=== PATIENT | male | born 1985 | race Caucasian/White ===

== ENCOUNTER 2017-01-24 07:26 | Emergency (ER) | payer BC ==
--- NOTE | 2017-01-24 07:41 | EDPHY ---
H & P Time Seen by Provider: 01/24/17 07:33 HPI/ROS: Chief complaint. Vomiting and diarrhea HPI. 31-year-old male here with nausea vomiting diarrhea and some abdominal cramping that started last night. He ate a raw egg is part of a meal at lunch yesterday. He also drink a fair amount of milk last evening. He does not think he is lactose intolerant. Still slightly nauseated though the diarrhea has decreased as well as the abdominal cramping. He feels somewhat lightheaded on standing. He has some burning with urination. No fever. No chest discomfort or trouble breathing. ROS Constitutional. no fever/chills, no weakness Eyes. no problems with vision ENT. no sore throat, no nasal drainage Cardiovascular. no chest pain Respiratory. no shortness of breath, no cough Abdominal. Abdominal cramping with nausea vomiting and diarrhea . no problems urinating MS. no calf pain/swelling, no neck/back pain, no joint pain Skin. no rash Lymph. no swollen glands Neuro. no headache, no dizziness, no difficulty walking or with speech Past Medical/Surgical History: Anxiety, panic attacks Social History: Single, nonsmoker, no alcohol. 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 ENT, mucous membranes slightly dry Respiratory: There are no retractions, lungs are clear to auscultation. Cardiovascular: Regular rate and rhythm. Gastrointestinal: Abdomen is soft and nontender, no masses, bowel sounds normal. No pain to palpation Neurological: Awake and alert, sensory and motor exams grossly normal. Skin: Warm and dry, no rashes. Musculoskeletal: Neck is supple nontender. Extremities symmetrical, full range of motion. Psychiatric: Patient is oriented X 3, there is no agitation. Constitutional: Initial Vital Signs Temperature (C) 36.6 C 01/24/17 07:28 Heart Rate 99 01/24/17 07:28 Respiratory Rate 18 01/24/17 07:28 Blood Pressure 105/63 01/24/17 07:28 O2 Delivery Mode Room Air Allergies/Adverse Reactions: No Known Allergies Allergy (Verified 01/24/17 07:27) Home Medications: Medication Instructions Recorded NO HOME MEDS 05/28/10 Ondansetron Odt [Zofran Odt] 4 mg PO Q4PRN PRN #4 tab 01/24/17 Medical Decision Making Procedures: Zofran ODT ED Course/Re-evaluation: Re-evaluation at 9:30 a.m.. Patient is unable to give stool sample. He looks well and has minimal symptoms at this point. The patient and I discussed laboratory evaluation, treatment plan including criteria for return importance of follow-up further evaluation. He expresses understanding and agreement Differential Diagnosis: This certainly could be Salmonella infection as the patient has eaten raw eggs and then developed symptoms. It could be a vomiting and diarrhea viral type illness as well. Unable to give us a stool sample at this point. We will plan on symptomatic care. Mild dehydration but patient taking fluids without further vomiting or diarrhea. - Data Points Laboratory Results: 01/24/17 08:00 Urine Color YELLOW Urine Appearance CLEAR Urine pH 9.0 H (5.0-7.5) Ur Specific [place] 1.028 (1.002-1.030) Urine Protein 1+ H (NEGATIVE) Urine Ketones NEGATIVE (NEGATIVE) Urine Blood NEGATIVE (NEGATIVE) Urine Nitrate NEGATIVE (NEGATIVE) Urine Bilirubin NEGATIVE (NEGATIVE) Urine Urobilinogen NEGATIVE EU EU (0.2-1.0) Ur Leukocyte Esterase NEGATIVE (NEGATIVE) Urine RBC 1-3 /hpf /hpf (0-3) Urine WBC 1-3 /hpf /hpf (0-3) Ur Epithelial Cells NONE SEEN /lpf /lpf (NONE-1+) Urine Mucus TRACE /lpf /lpf (NONE-1+) Urine Glucose NEGATIVE (NEGATIVE) Medications Given: Discontinued Medications Ondansetron HCl (Zofran Odt) 4 mg PO EDNOW ONE Stop: 01/24/17 07:56 Last Admin: 01/24/17 08:04 Dose: 4 mg Departure - Departure Disposition: Home, Routine, Self-Care Clinical Impression: Abdominal pain Qualifiers: Abdominal location: generalized Qualified Code(s): R10.84 - Generalized abdominal pain Condition: Good Instructions: Acute Abdominal Pain (ED), Salmonella Infection (ED), Loperamide (By mouth) Additional Instructions: Frequent, small sips fluids while nauseated. Zofran if needed for nausea and vomiting. Your goal is to drink enough fluids get a urine to be fairly clear. Return for worsening pain, fever, vomiting. May use Imodium (loperamide) as needed for diarrhea. Recheck in 2 days if not improved Referrals: Geo Vasquez [Primary Care Provider] - 2-3 days, if not improved Prescriptions: Ondansetron Odt [Zofran Odt] 4 mg PO Q4PRN PRN #4 tab PRN Reason: Nausea/Vomiting, Use 1st
[2017-01-24] MEDS ORDERED: ONDANSETRON DISINTEGRATING 4 MG TAB PO ONE (07:55)
[2017-01-24 08:06] VITALS: BP 108/64; PULSE 97; RESP 16; O2SAT 97
[2017-01-24 08:27] LABS: COLOR YELLOW; LEUKOCYTE ESTERASE,URINE NEGATIVE (NEGATIVE); NITRITE,URINE NEGATIVE (NEGATIVE)
[2017-01-24 08:35] LABS: MUCUS TRACE /lpf (NONE-1+)
[2017-01-24 10:05] VITALS: TEMP 98.2
== END 2017-01-24 10:06 | disposition home or self-care (01) ==
DX: R10.84 Generalized abdominal pain (principal)